=== PATIENT | male | born 1945 | race Caucasian/White ===

== ENCOUNTER 2018-10-02 21:27 | Inpatient (IN) | payer BC, MEDICARE ==
[~2018-10-02] VITALS: Ht 190.5 cm; Wt 111.6 kg
--- NOTE | ~2018-10-02 | OP ---
[address] [address] OPERATIVE REPORT Name: SAGECARIE N Room: [address] IN .R.#: [id number] Admission: 10/02/18 Attend Phys: Remy Sparks MD Discharge: Date of : 47 Report #: [id number] THIS REPORT FOR: //name// CC: Remy Sparks [facility] physician/PCP Frandy Gray PREOPERATIVE DIAGNOSIS: Left hallux open fracture. POSTOPERATIVE DIAGNOSIS: Left hallux open fracture. PROCEDURE: Open reduction and internal fixation of left hallux with washout. ANESTHESIA: General with a local block consisting 6 mL of 0.5% Marcaine plain. TOURNIQUET: None. DESCRIPTION OF PROCEDURE: The patient was transferred to OR and placed on operating room table in supine position. General anesthesia was administered and a local block was given and the left lower extremity was prepped and draped in the usual sterile manner. Attention was directed to the left hallux's open fracture. I did remove the nail to get a better look at the area. There is a fracture at the base of the distal phalanx open. I was able to wash it out thoroughly with approximately a liter of normal saline with bacitracin mix and then reduced it nicely using an x-ray to make sure it was reduced and then used a pin and 0.062 K-wire to go across the fracture site through the distal phalanx into the proximal phalanx. Excellent alignment was noted, near anatomic position. Then the skin was closed with 3 nylon using a simple suture technique. It was dressed with Xeroform, fluffs, Grover, and outer Jayme bandage. The patient tolerated the procedure well and left the operating room in stable condition ____ intact. X-rays taken to make sure good alignment was noted and rigid fixation was noted. The patient will be in a Cam walker, will be weightbearing only for necessities for the first week. He will follow up in my office in approximately 1 week. He will be given pain medications, Lockwood, and doxycycline 100 mg for 1 [place] [address] OPERATIVE REPORT Name: CARIE SAGE Room: [address] [place] [facility]#: [id number] Admission: 10/02/18 Attend Phys: Remy Sparks MD Discharge: Date of : 47 Report #: [id number] He is diabetic and he has open fracture. By: [id number] [id number] Gray DPM /brian
[2018-10-02 21:35] VITALS: BP 135/75
[2018-10-02] MEDS ORDERED: CYMBALTA60 MG PO (21:41)
[2018-10-02] MEDS ORDERED: ELIQUIS5 MG PO (21:41)
[2018-10-02] MEDS ORDERED: CRESTOR10 MG PO (21:41)
[2018-10-02] MEDS ORDERED: METFORMIN HCL500 MG PO (21:41)
[2018-10-02] MEDS ORDERED: CARVEDILOL12.5 MG PO (21:42)
[2018-10-02] MEDS ORDERED: DIOVAN160 MG PO (21:42)
[2018-10-02] MEDS ORDERED: JARDIANCE10 MG PO (21:43)
[2018-10-02 23:10] LABS: HEMATOCRIT 46.3 % (42.0-52.0); HEMOGLOBIN 15.5 gm/dL (14.0-18.0); MCH 27.2 pg (26.0-34.0); MCHC 33.4 g/dL (28.0-37.0); MCV 81.5 fL (80.0-100.0); MPV 8.3 fl. (7.2-11.1); RBC 5.68 mil/uL (4.50-6.00); RDW-CV 15.6 % (10.5-14.5); WBC 8.4 thou/uL (4.0-11.0)
[2018-10-02 23:21] LABS: CALCIUM 9.5 mg/dL (8.5-10.1); CREATININE 1.4 mg/dL (0.6-1.3); POTASSIUM 4.2 mmol/L (3.5-5.1)
[2018-10-02 23:24] LABS: INR 1.1; PROTIME 11.3 Seconds (9.20-11.50)
[2018-10-03] VITALS (8 sets, daily range): BP systolic 97–144; BP diastolic 62–80
--- NOTE | 2018-10-03 02:45 | NUR ---
PT ADMITTED TO ROOM 114 AT 0005. PT TRANSFERED FROM ER CART TO BED WITH ASSISTANCE. PT ORIENTED TO BED CONTROLS, CALL LIGHT AND ROOM. PT DENIED PAIN OR DISCOMFORT. BUVICAINE INJECTION TO RIGHT FOOT STILL EFFECTIVE. PT REPORTS RIGHT FOOT NUMB. PT INFORMED SURGURY SCHEDULED AT 0730. PT INSTRUCTED TO REMAIN NPO FOR SURGURY. PT'S TOOK BELONGINGS HOME. CALL LIGHT IN REACH, PT DEMONSTRATES PROPER USE.
[2018-10-03] MEDS ORDERED: CLARITIN10 MG PO (06:54)
[2018-10-03] MEDS ORDERED: PROTONIX40 M1 PO (06:55)
[2018-10-03] MEDS ORDERED: JANUVIA25 MG PO (06:57)
--- NOTE | 2018-10-03 07:08 | NUR ---
PT NPO SINCE PRIOR TO ARRIVING ON UNIT. PT TAKEN TO PREOP PER OR TEAM AT 0630. PT'S GIVEN DIRECTIONS TO PREOP WATING AREA.
[2018-10-03] MEDS ORDERED: DOXYCYCLINE 10100 MG PO (08:24)
[2018-10-03] MEDS ORDERED: NORCO 5-325 TA1 EAC1 PO (08:24)
--- NOTE | 2018-10-03 12:55 | NUR ---
PATIENT RETURNED FROM SURGERY AT 0915. PATIENT LEFT FOOT NOTED TO BE COOL BUT PULSE FELT AND CAP REFILL <3 SECONDS. SOME BLOOD NOTED ON DRESSING AROUND PATIENT LEFT GREAT TOE. LEFT FOOT WAS ELEVATED. CAM BOOT ORDERED AND FITTED FOR PATIENT TO WEAR WHEN OUT OF BED, PATIENT INSTRUCTED ONLY FOR NESSESSITIES. URINAL WAS GIVEN FOR TAKE HOME FOR PATIENT TO USE AT . DR. FRASER NOTIFIED THAT PATIENT BP WAS RUNNING IN THE 90'S SYSTOLIC, ORDERS FOR A ONE TIME 500MLS BOLUS. BOLUS WAS GIVEN AND BP NOW CHARTED. PATIENT VERBALIZES UNDERSTANDING OF PAPERWORK AND SCRIPTS. PATIENT TAKEN OUT VIA WHEELCHAIR WITH PAPERWORK AND SCRIPTS.
--- NOTE | 2018-10-03 16:14 | EKG ---
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
== END 2018-10-03 12:58 | disposition home or self-care (01) | DRG 505 ==
LOC: M.ERS 21:27 → M.ORTHSURG 23:19 → M.TBA-ER 23:19 → M.ORTHSURG 10-03 02:21
PROVIDERS: Personal Emergency Response Attendant; ADMIT Internal Medicine
PROC: 0QSRXZZ Reposition Left Toe Phalanx, External Approach (ICD-10-PCS; principal; 2018-10-02)
PROC: 0QSR04Z Reposition Left Toe Phalanx with Internal Fixation Device, Open Approach (ICD-10-PCS; 2018-10-03)
DX: S92.402B Displaced unspecified fracture of left great toe, initial encounter for open fracture (principal); I48.91 Unspecified atrial fibrillation; E11.9 Type 2 diabetes mellitus without complications; I10 Essential (primary) hypertension; Z96.1 Presence of intraocular lens; W01.0XXA Fall on same level from slipping, tripping and stumbling without subsequent striking against object, initial encounter; Z79.84 Long term (current) use of oral hypoglycemic drugs; Z79.899 Other long term (current) drug therapy; Z88.2 Allergy status to sulfonamides; Z88.8 Allergy status to other drugs, medicaments and biological substances; Y93.89 Activity, other specified; Y92.89 Other specified places as the place of occurrence of the external cause; Y99.8 Other external cause status; Z88.0 Allergy status to penicillin; Z98.42 Cataract extraction status, left eye; Z98.41 Cataract extraction status, right eye; Z87.891 Personal history of nicotine dependence